=== PATIENT | female | born 1985 | race Caucasian/White ===

== ENCOUNTER 2018-05-30 00:22 | Emergency (ER) | payer MEDICARE, OTHER ==
[2018-05-30] MEDS ORDERED: PROMETHAZINE HCL INJ 25 MG in SODIUM CHLORIDE 0.9% 50ML 50 ML IVPB ONE (00:49)
[2018-05-30] MEDS ORDERED: MORPHINE SULFATE INJ 10 MG/ML VIAL IV ONE ×3 (00:50→02:12)
--- NOTE | 2018-05-30 00:55 | ED.PDOC ---
History of Present Illness - General Chief Complaint: GI Problem Stated Complaint: nausea, vomiting, diarrhea Time Seen by Provider: 05/30/18 00:38 Source: patient, family Exam Limitations: no limitations - History of Present Illness Initial Comments: Patient presents with acute on chronic nausea, vomiting, and diarrhea. She has idiopathic gastroparesis, according to her and her parents, and get these episodes frequently. During them, she has bilious vomiting and sometimes diarrhea. She says that she normally takes phenergan 25 mg IV x one then waits one hour. After that, she then takes a "compazine with a benadryl". She also says she gets treated with morphine. She has a pain specialist that she receives narcotics from. This episode has been going of for "days". She was using phenergan [place] but the diarrhea is preventing her from doing that so she came to the E.R[facility] to get I.V. medications. No other complaints. She does not want laboratories drawn because she has to do that every week and has a lot of "scar tissue" and is a "hard stick". Timing/Duration: changing over time Severity: moderate Improving Factors: nothing Worsening Factors: nothing Associated Symptoms: nausea/vomiting Allergies/Adverse Reactions: Allergies Codeine Allergy (Verified 05/30/18 00:40) Latex Allergy (Verified 05/30/18 00:40) Home Medications: Ambulatory Orders Clonazepam [Clonazepam Odt] 05/30/18 Clonazepam [Clonazepam Odt] 0.25 mg PO TID 05/30/18 Dronabinol [Dronabinol] 10 mg PO DAILY 05/30/18 Olanzapine [Olanzapine Odt] 10 mg PO DAILY 05/30/18 Sucralfate Suspension [Carafate Suspension] 1 gm PO DAILY 05/30/18 Review of Systems - Review of Systems Constitutional: States: no symptoms reported EENTM: States: no symptoms reported Respiratory: States: no symptoms reported Cardiology: States: no symptoms reported Gastrointestinal/Abdominal: States: see HPI Genitourinary: States: no symptoms reported Musculoskeletal: States: no symptoms reported Skin: States: no symptoms reported Neurological: States: no symptoms reported Endocrine: States: no symptoms reported Hematologic/Lymphatic: States: no symptoms reported Physical Exam - Physical Exam General Appearance: Alert Respiratory: lungs clear, normal breath sounds Cardiovascular/Chest: normal peripheral pulses, regular rate, rhythm Gastrointestinal/Abdominal: normal bowel sounds, soft, tenderness, other - bilious vomitus apparent in the vomit bag Back Exam: no CVA tenderness Progress - Progress Progress: 05/30/18 01:39 Phenergan 25 mg IV x one given along with Morphine 4 mg IV x one. The pain lessened slightly and the nausea moderately. After checking interactions with dosage limits as well as finding out from the patient and her parents that she had only had one dose of [place] phenergan early this morning, she was given a single dose of Compazine 10 mg combined with Benadryl 25 mg IV x one. Her pain remained significant and she was given one more dose of Morphine 4 mg IV x one. She was also given NS one liter IV x one. She was discharged to her usual follow up with her GI doctor. Questions were elicited and answered. The patient as well as her parents voiced understanding and agreement with the plan. Departure - Departure Clinical Impression: Gastroparesis, Nausea & vomiting, Diarrhea Disposition: Discharge to Home or Self Care Condition: Good Departure Forms: ED Discharge - Pt. Copy, Patient Portal Self Enrollment Diet: other - as per your GI doctor Activity: increase activity as tolerated Home Medications: Ambulatory Orders Clonazepam [Clonazepam Odt] 05/30/18 Clonazepam [Clonazepam Odt] 0.25 mg PO TID 05/30/18 Dronabinol [Dronabinol] 10 mg PO DAILY 05/30/18 Olanzapine [Olanzapine Odt] 10 mg PO DAILY 05/30/18 Sucralfate Suspension [Carafate Suspension] 1 gm PO DAILY 05/30/18
[2018-05-30] MEDS ORDERED: SODIUM CHLORIDE 0.9% 50ML 50 ML ONE (00:56)
[2018-05-30] MEDS ORDERED: PROMETHAZINE HCL INJ 25 MG/ML VIAL ONE (00:56)
[2018-05-30 01:03] VITALS: O2SAT 100
[2018-05-30] MEDS ORDERED: SODIUM CHLORIDE 0.9% 1000ML 1,000 ML IVS ONE ×2 (01:32→01:36)
[2018-05-30] MEDS ORDERED: SODIUM CHLORIDE 0.9% 1000ML 1,000 ML ONE (01:32)
[2018-05-30] MEDS ORDERED: PROCHLORPERAZINE INJ 10 MG/2 ML VIAL IV ONE (01:37)
[2018-05-30] MEDS ORDERED: diphenhydrAMINE HCL 50 MG/ML VIAL IV ONE (01:38)
[2018-05-30 02:52] VITALS: BP 121/78; TEMP 97.9
== END 2018-05-30 02:52 | disposition home or self-care (01) ==
LOC: EDSEX → ER 00:22
DX: K31.84 Gastroparesis (principal); Z88.5 Allergy status to narcotic agent; Z91.040 Latex allergy status
CPT/HCPCS: A4216; J0780; J1200; J2270; J2550; J7030

== ENCOUNTER 2018-05-31 15:43 | Emergency (ER) | payer MEDICARE, OTHER ==
[2018-05-31] MEDS ORDERED: LACTATED RINGERS 1,000 ML IVS ONE (16:19)
[2018-05-31] MEDS ORDERED: PROMETHAZINE HCL INJ 25 MG in SODIUM CHLORIDE 0.9% 50ML 50 ML IVPB ONE (16:24)
[2018-05-31] MEDS ORDERED: MORPHINE SULFATE INJ 10 MG/ML VIAL IV ONE ×2 (16:24→18:14)
--- NOTE | 2018-05-31 16:26 | ED.PDOC ---
History of Present Illness - General Chief Complaint: GI Problem Stated Complaint: nausea, vomiting and diarrhea Time Seen by Provider: 05/31/18 16:05 Exam Limitations: no limitations - History of Present Illness Initial Comments: Boris Britton 32 y/o female stated that she has gastroparesis for the last 4 years and small fiber neuropathy came to ER wit Nausea/vomiting on and off for the last 3 days was seen 2 x in ER [place] and [facility].Today has also has watery diarrhea.Had been seen at [facility] for possible GI pacemaker but mom stated not candidate and presently followed up at [facility] by a GI specialist.Also is on ferry terminal agent TPN. Abdominal Pain Onset Location: generalized abdomen Pain Radiation: no radiation Quality: cramping, intermittent Timing/Duration: days - 3 Improving Factors: nothing Worsening Factors: nothing Associated Symptoms: nausea/vomiting Review of Systems - Review of Systems Constitutional: States: no symptoms reported EENTM: States: no symptoms reported Respiratory: States: no symptoms reported Cardiology: States: no symptoms reported Gastrointestinal/Abdominal: States: see HPI Genitourinary: States: no symptoms reported Musculoskeletal: States: no symptoms reported Skin: States: no symptoms reported Neurological: States: no symptoms reported Past Medical History (General) - Patient Medical History Hx Cardiac Disorders: Yes - A-fib Hx Diabetes: No Hx Gastroesophageal Reflux: Yes - gastroparesis Hx Cancer: Yes - melanoma Surgical History: cholecystectomy, other - 35 craniofacial surgeries - Vaccination History Hx Tetanus, Diphtheria Vaccination: No Hx Influenza Vaccination: Yes Hx Pneumococcal Vaccination: No - Social History Hx Tobacco Use: No Hx Alcohol Use: No - Female History Patient is a Female of Child Bearing Age (10 -59 yrs old): Yes Patient : No Family Medical History - Family History Father Living Status: Still Living Hx Family Hypertension: Yes Hx Cardiac Disease: Yes - high cholesterol Hx Family;Other: horseshoe kidney Mother Living Status: Still Living Hx Family Hypertension: Yes Hx Cardiac Disease: Yes - A-fib Hx Family;Other: Thyroiditis -sister Physical Exam - Physical Exam General Appearance: Alert, Comfortable, No apparent distress Eyes, Ears, Nose, Throat Exam: PERRL/EOMI, normal ENT inspection, pharynx normal , other - non icteric sclerae Neck: non-tender, full range of motion, supple Respiratory: chest non-tender, lungs clear, normal breath sounds, no respiratory distress Cardiovascular/Chest: normal peripheral pulses, regular rate, rhythm, no murmur Peripheral Pulses: No deficit Gastrointestinal/Abdominal: non tender, soft, no organomegaly Back Exam: no CVA tenderness, no vertebral tenderness Extremity: no pedal edema, no calf tenderness Neurologic: alert, oriented x 3 Skin Exam: normal color, warm/dry, other - TPN port right side chest Lymphatic: no adenopathy Progress - Progress Progress: 05/31/18 16:33 Vital Signs - 8 hr 05/31/18 15:50 Temperature 98.7 F Pulse Rate [ 87 pulse ox] Respiratory 20 Rate Blood Pressure 126/85 [Left Arm] O2 Sat by Pulse 97 Oximetry - Results/Orders Results/Orders: 05/31/18 16:24 URINALYSIS Stat 05/31/18 16:25 URINALYSIS Stat Laboratory Results - last 24 hr 05/31/18 05/31/18 05/31/18 16:38 16:38 18:16 WBC 10.8 RBC 4.75 Hgb 13.6 Hct 41.1 MCV 86.4 MCH 28.6 MCHC 33.1 RDW 14.4 Plt Count 216 MPV 10.0 Absolute Neuts (auto) 7.90 H Absolute Lymphs (auto) 2.00 Absolute Monos (auto) 0.80 Absolute Eos (auto) 0.00 Absolute Basos (auto) 0.10 Neutrophils % 73.0 Lymphocytes % 18.7 L Monocytes % 7.6 Eosinophils % 0.1 L Basophils % 0.6 Normal RBC Morphology Plts rosa increased Sodium 140 Potassium 3.4 L Chloride 104 Carbon Dioxide 21 Anion Gap 18.4 H BUN 22 H Creatinine 0.82 BUN/Creatinine Ratio 26.8 H Random Glucose 105 Serum Osmolality 283.1 Calcium 9.7 Total Bilirubin 0.7 AST 31 ALT 37 Alkaline Phosphatase 152 H Serum Total Protein 8.5 H Albumin 4.4 Globulin 4.1 H Albumin/Globulin Ratio 1.1 Lipase 16 L Serum HCG, Qual Negative - EKG/XRAY/CT XRAY: abdomen - chest -no acute findings Departure - Departure Clinical Impression: Gastroparesis, Nausea vomiting and diarrhea Time of Disposition: 19:59 Disposition: Discharge to Home or Self Care Condition: Fair Departure Forms: ED Discharge - Pt. Copy, Patient Portal Self Enrollment Home Medications: Ambulatory Orders Clonazepam [Clonazepam Odt] 05/30/18 Clonazepam [Clonazepam Odt] 0.25 mg PO TID 05/30/18 Dronabinol [Dronabinol] 10 mg PO DAILY 05/30/18 Olanzapine [Olanzapine Odt] 10 mg PO DAILY 05/30/18 Sucralfate Suspension [Carafate Suspension] 1 gm PO DAILY 05/30/18 Additional Instructions: Continue with all home medications;Recheck with your GI specialist 03 Jun 2018 as needed;Return to ER as needed
[2018-05-31] MEDS ORDERED: SODIUM CHLORIDE 0.9% 50ML 50 ML ONE (16:28)
[2018-05-31] MEDS ORDERED: PROMETHAZINE HCL INJ 25 MG/ML VIAL ONE (16:28)
--- NOTE | 2018-05-31 17:40 | RAD ---
EXAM DESCRIPTION: Abdomen 1 View (accession [id number]), Chest,1 View (accession [id number]) CLINICAL HISTORY: 32 years Female ,nausea/vomiting COMPARISON: None. TECHNIQUE: Frontal view chest x-ray and single view of the abdomen. FINDINGS: The cardiomediastinal silhouette appears unremarkable. No consolidating infiltrates or pleural effusions. Left chest port tip overlies the SVC. Right internal jugular central venous catheter tip overlies the lower SVC. No free air is identified beneath the hemidiaphragms. No dilated loops of bowel to suggest obstruction. No significant calcific densities are identified. Cholecystectomy clips in the right upper quadrant. IMPRESSION: No acute plain film abnormality is identified. Electronically signed by: Diallo Steen MD 05/31/2018 5:39 PM [facility]
--- NOTE | 2018-05-31 17:40 | RAD ---
EXAM DESCRIPTION: Abdomen 1 View (accession [id number]), Chest,1 View (accession [id number]) CLINICAL HISTORY: 32 years Female ,nausea/vomiting COMPARISON: None. TECHNIQUE: Frontal view chest x-ray and single view of the abdomen. FINDINGS: The cardiomediastinal silhouette appears unremarkable. No consolidating infiltrates or pleural effusions. Left chest port tip overlies the SVC. Right internal jugular central venous catheter tip overlies the lower SVC. No free air is identified beneath the hemidiaphragms. No dilated loops of bowel to suggest obstruction. No significant calcific densities are identified. Cholecystectomy clips in the right upper quadrant. IMPRESSION: No acute plain film abnormality is identified. Electronically signed by: Diallo Steen MD 05/31/2018 5:39 PM [facility]
[2018-05-31] MEDS ORDERED: PROCHLORPERAZINE INJ 10 MG/2 ML VIAL IV ONE (17:58)
[2018-05-31] MEDS ORDERED: diphenhydrAMINE HCL 50 MG/ML VIAL IV ONE (17:59)
[2018-05-31] MEDS ORDERED: SODIUM CHLORIDE 0.9% 1000ML 1,000 ML IVS ONE (18:00)
[2018-05-31 19:54] VITALS: O2SAT 100
[2018-05-31 20:59] VITALS: BP 110/72; TEMP 97
== END 2018-05-31 20:10 | disposition home or self-care (01) ==
LOC: EDSEX 15:43 → ER 15:43
DX: K31.84 Gastroparesis (principal); I48.91 Unspecified atrial fibrillation; Z90.49 Acquired absence of other specified parts of digestive tract; Z85.820 Personal history of malignant melanoma of skin
CPT/HCPCS: 36415; 71045; 74018; 80053; 83690; 84703; 85025; A4216; J0780; J1200; J2060; J2270; J2550; J7030; J7120

== ENCOUNTER 2018-06-01 19:00 | Emergency (ER) | payer MEDICARE, OTHER ==
[2018-06-01] MEDS ORDERED: SODIUM CHLORIDE 0.9% 1000ML 1,000 ML IVS ONE (19:36)
[2018-06-01] MEDS ORDERED: PROMETHAZINE HCL INJ 25 MG in SODIUM CHLORIDE 0.9% 50ML 50 ML IVPB ONE (19:37)
[2018-06-01] MEDS ORDERED: MORPHINE SULFATE INJ 10 MG/ML VIAL IV ONE ×2 (19:37→21:38)
[2018-06-01] MEDS ORDERED: SODIUM CHLORIDE 0.9% 50ML 50 ML ONE (19:40)
[2018-06-01] MEDS ORDERED: PROMETHAZINE HCL INJ 25 MG/ML VIAL ONE (19:40)
[2018-06-01 20:20] VITALS: TEMP 99.2
[2018-06-01] MEDS ORDERED: PROCHLORPERAZINE INJ 10 MG/2 ML VIAL IV ONE (20:36)
[2018-06-01] MEDS ORDERED: diphenhydrAMINE HCL 50 MG/ML VIAL IV ONE (20:43)
--- NOTE | 2018-06-01 21:08 | ED.PDOC ---
History of Present Illness - General Chief Complaint: Abdominal Pain Stated Complaint: nausea, vomiting and diarrhea Time Seen by Provider: 06/01/18 19:03 Source: patient - History of Present Illness Initial Comments: the patient is a 32-year-old female presenting with a flare of her intestinal dysmotility. This is not a long-term problem for her. She is in here from [place] of town. She has a tunneled catheter for TPN which she uses nightly. She has presented twice over the last 2 nights not including tonight for this flare. She is having a mild amount of diarrhea. No blood. She feels a little bit dehydrated. She is having some abdominal pain. She has had very extensive workups for this problem in the past. She normally has a routine of medications that she takes at home however she has been unable to hold those down Timing/Duration: unsure Severity: moderate Improving Factors: nothing Worsening Factors: nothing Associated Symptoms: denies symptoms Allergies/Adverse Reactions: Allergies Codeine Allergy (Verified 05/31/18 15:58) Latex Allergy (Verified 05/31/18 15:58) Home Medications: Ambulatory Orders Clonazepam [Clonazepam Odt] 05/30/18 Clonazepam [Clonazepam Odt] 0.25 mg PO TID 05/30/18 Dronabinol [Dronabinol] 10 mg PO DAILY 05/30/18 Olanzapine [Olanzapine Odt] 10 mg PO DAILY 05/30/18 Sucralfate Suspension [Carafate Suspension] 1 gm PO DAILY 05/30/18 Review of Systems - Review of Systems Constitutional: States: no symptoms reported EENTM: States: no symptoms reported Respiratory: States: no symptoms reported Cardiology: States: no symptoms reported Gastrointestinal/Abdominal: States: see HPI Genitourinary: States: no symptoms reported Musculoskeletal: States: no symptoms reported Skin: States: no symptoms reported Neurological: States: no symptoms reported Endocrine: States: no symptoms reported All other Systems: No Change from Baseline Past Medical History (General) - Patient Medical History Hx Seizures: No Hx Stroke: No Hx Dementia: No Hx Asthma: No Hx of COPD: No Hx Cardiac Disorders: Yes - A-fib Hx Congestive Heart Failure: No Hx Pacemaker: No Hx Hypertension: No Hx Thyroid Disease: No Hx Diabetes: No Hx Gastroesophageal Reflux: Yes - gastroparesis Hx Renal Disease: No Hx Cancer: Yes - melanoma Hx of HIV: No Hx Hepatitis C: No Hx MRSA: No Surgical History: cholecystectomy - Vaccination History Hx Tetanus, Diphtheria Vaccination: No Hx Influenza Vaccination: Yes Hx Pneumococcal Vaccination: No Immunizations Up to Date: No - Social History Hx Tobacco Use: No Hx Alcohol Use: No Hx Substance Use: No Hx Substance Use Treatment: No Hx Depression: No Feels Threatened In Home Enviroment: No Feels Threatened In a Relationship: No Hx Physical Abuse: No Hx Emotional Abuse: No Hx Suspected Abuse: No - Female History Patient is a Female of Child Bearing Age (10 -59 yrs old): Yes Hx Last Menstrual Period: 05/09/18 Patient : No - Triage Comment ED Triage Comment: was seen yesterday, states "it is the exact same thing" symptome returned at 1200 today Family Medical History - Family History Father Living Status: Still Living Hx Family Hypertension: Yes Hx Cardiac Disease: Yes - high cholesterol Hx Family;Other: horseshoe kidney Mother Living Status: Still Living Hx Family Hypertension: Yes Hx Cardiac Disease: Yes - A-fib Hx Family;Other: Thyroiditis -sister Physical Exam - Physical Exam General Appearance: Alert, Comfortable, No apparent distress Eye Exam: bilateral normal Ears, Nose, Throat: hearing grossly normal Respiratory: no respiratory distress, no accessory muscle use Cardiovascular/Chest: no edema, other - her double lumen catheter is to the right anterior chest Gastrointestinal/Abdominal: soft, other - ild diffuse discomfort. Mild obesity. Rectal Exam: deferred Back Exam: normal inspection Extremity: normal range of motion, no pedal edema, normal capillary refill Neurologic: poultry sexer II-XII nml as tested, alert, normal mood/affect, oriented x 3 Skin Exam: normal color Comments: Vital Signs - 24 hr 06/01/18 06/01/18 19:10 20:01 Temperature 99.3 F 99.2 F Pulse Rate [ 100 H 102 H pulse ox] Respiratory 20 20 Rate Blood Pressure 131/91 129/89 [ra] O2 Sat by Pulse 100 100 Oximetry Progress - Progress Progress: 06/01/18 21:09 the patient is a 32-year-old female presenting with a flare of her intestinal dysmotility. She has received a liter of IV fluids and a combination of medications that she reports normally works for this problem. The patient is feeling somewhat better. She needs to keep follow-up with her primary care doctor early this coming week. ER warnings were given. Departure - Departure Clinical Impression: Generalized intestinal dysmotility Disposition: Discharge to Home or Self Care Condition: Fair Departure Forms: ED Discharge - Pt. Copy, Patient Portal Self Enrollment Instructions: DI for Abdominal Pain-Adult Diet: bland diet, other - continue TPN Activity: increase activity as tolerated Home Medications: Ambulatory Orders Clonazepam [Clonazepam Odt] 05/30/18 Clonazepam [Clonazepam Odt] 0.25 mg PO TID 05/30/18 Dronabinol [Dronabinol] 10 mg PO DAILY 05/30/18 Olanzapine [Olanzapine Odt] 10 mg PO DAILY 05/30/18 Sucralfate Suspension [Carafate Suspension] 1 gm PO DAILY 05/30/18 Additional Instructions: the patient is a 32-year-old female presenting with a flare of her intestinal dysmotility. She has received a liter of IV fluids and a combination of medications that she reports normally works for this problem. The patient is feeling somewhat better. She needs to keep follow-up with her primary care doctor early this coming week. ER warnings were given.
[2018-06-01 22:08] VITALS: BP 113/78; O2SAT 100
== END 2018-06-01 22:10 | disposition home or self-care (01) ==
LOC: ER 19:00
DX: K30 Functional dyspepsia (principal); R11.2 Nausea with vomiting, unspecified; R19.7 Diarrhea, unspecified; I48.91 Unspecified atrial fibrillation; Z88.5 Allergy status to narcotic agent; Z91.040 Latex allergy status; Z90.49 Acquired absence of other specified parts of digestive tract; Z85.820 Personal history of malignant melanoma of skin
CPT/HCPCS: A4216; J0780; J1200; J2060; J2270; J2550; J7030

== ENCOUNTER 2018-07-01 09:43 | Emergency (ER) | payer OTHER, MEDICARE ==
[2018-07-01 09:57] VITALS: TEMP 98.1
--- NOTE | 2018-07-01 10:00 | ED.PDOC ---
History of Present Illness - General Chief Complaint: GI Problem Stated Complaint: vomiting and diarrhea Time Seen by Provider: 07/01/18 09:56 Information Source: patient, family Exam Limitations: no limitations - History of Present Illness Initial Comments: THIS IS A PATIENT OF DR. CARDENAS WITH CHRONIC DYSMOTILITY SYNDROME AND GASTROPARESIS. SHE WAS JUST RELEASED FROM [facility] FOR A FLARE UP. SHE IS VISITING HERE FOR SAUGERTIES AND NOW PRESENTS WITH DIARRHEA, VOMINTING AND ABDOMIHNAL PAIN. SHE HAS A PICC LINE ON THE RIGHT SUBCLAVIAN. SHE IS ON PHENERGAN EVERY 4 HRS AND TPN. FAMILY VOICES THAT USUALLY BENADRYL AND PHENERGAN IV AND MD CONTGROLS THE FLARE UP. Abdominal Pain Onset Location: generalized abdomen Pain Radiation: no radiation Quality: moderate Timing/Duration: days - TWO DAYS Improving Factors: nothing Worsening Factors: nothing Review of Systems - Review of Systems Constitutional: States: malaise, weakness EENTM: States: no symptoms reported Respiratory: States: no symptoms reported Cardiology: States: no symptoms reported Gastrointestinal/Abdominal: States: abdominal pain, diarrhea, nausea, vomiting Genitourinary: States: no symptoms reported Musculoskeletal: States: no symptoms reported Skin: States: no symptoms reported Neurological: States: no symptoms reported Endocrine: States: no symptoms reported Hematologic/Lymphatic: States: no symptoms reported Past Medical History (General) - Patient Medical History Hx Seizures: No Hx Stroke: No Hx Dementia: No Hx Asthma: No Hx of COPD: No Hx Cardiac Disorders: Yes Hx Congestive Heart Failure: No Hx Pacemaker: No Hx Hypertension: No Hx Thyroid Disease: No Hx Diabetes: No Hx Gastroesophageal Reflux: Yes - gastroparesis Hx Renal Disease: No Hx Cancer: Yes - melanoma Hx of HIV: No Hx Hepatitis C: No Hx MRSA: No Surgical History: other - Vaccination History Hx Tetanus, Diphtheria Vaccination: No Hx Influenza Vaccination: Yes Hx Pneumococcal Vaccination: - refused - Social History Hx Tobacco Use: No Hx Alcohol Use: No Hx Substance Use: No Hx Substance Use Treatment: No Hx Depression: No Hx Physical Abuse: No Hx Emotional Abuse: No Hx Suspected Abuse: No - Female History Hx Last Menstrual Period: 05/09/18 Patient : No Family Medical History - Family History Father Living Status: Still Living Hx Family Hypertension: Yes Hx Cardiac Disease: Yes - high cholesterol Hx Family;Other: horseshoe kidney Mother Living Status: Still Living Hx Family Hypertension: Yes Hx Cardiac Disease: Yes - A-fib Hx Family;Other: Thyroiditis -sister Physical Exam - Physical Exam General Appearance: Alert, Ill Appearing, Well Developed, Well Groomed, Well Hydrated, Well Nourished Eyes, Ears, Nose, Throat Exam: PERRL/EOMI, normal ENT inspection Neck: non-tender, full range of motion, supple, normal inspection Respiratory: chest non-tender, normal breath sounds, no respiratory distress, no accessory muscle use Cardiovascular/Chest: normal peripheral pulses, regular rate, rhythm, no edema, no gallop, no JVD, no murmur Gastrointestinal/Abdominal: normal bowel sounds, tenderness Back Exam: normal inspection, no CVA tenderness, no vertebral tenderness Extremity: normal range of motion, non-tender, normal inspection Neurologic: no motor/sensory deficits, alert, normal mood/affect, oriented x 3 Skin Exam: normal color Progress - Progress Progress: 07/01/18 12:08 FEELS MUCH IMPROVED, DESIRES TO GO HOME. . Departure - Departure Clinical Impression: Nondiabetic gastroparesis, Generalized intestinal dysmotility Abdominal pain Qualifiers: Abdominal location: generalized Qualified Code(s): R10.84 - Generalized abdominal pain Time of Disposition: 12:10 Disposition: Discharge to Home or Self Care Condition: Fair Departure Forms: ED Discharge - Pt. Copy, Patient Portal Self Enrollment Instructions: Gastroparesis (Delayed Gastric Emptying) (DC) Home Medications: Ambulatory Orders Diphenhydramine HCl [Diphenhydramine Hydrochlo] 2 ml PO Q4H PRN 07/01/18 Dronabinol 10 mg PO Q6HR 07/01/18 Hyoscyamine Sulfate 0.125 mg SL Q4H PRN 07/01/18 Lansoprazole 30 mg PO BID 07/01/18 Parenteral Electrolytes [TPN Electrolytes] 1 inj IV DAILY 07/01/18 Prochlorperazine [Compro] 25 mg NE DAILY PRN 07/01/18 Promethazine HCl 25 mg NE Q4H PRN 07/01/18 Rizatriptan Benzoate [Maxalt-Executive Compensation Analyst] 5 mg PO DAILY PRN 07/01/18 Scopolamine Patch 1.5MG [Transderm-Scop Patch] 1 mg TD .Q3D 07/01/18
[2018-07-01] MEDS ORDERED: PROMETHAZINE HCL INJ 25 MG in SODIUM CHLORIDE 0.9% 50ML 50 ML IVPB ONE (10:08)
[2018-07-01] MEDS ORDERED: diphenhydrAMINE HCL 50 MG/ML VIAL IV ONE (10:09)
[2018-07-01] MEDS ORDERED: MORPHINE SULFATE INJ 10 MG/ML VIAL IV ONE (10:10)
[2018-07-01] MEDS ORDERED: SODIUM CHLORIDE 0.9% 1000ML 1,000 ML IVS ONE (10:12)
[2018-07-01] MEDS ORDERED: PROMETHAZINE HCL INJ 25 MG/ML VIAL ONE (10:16)
[2018-07-01] MEDS ORDERED: SODIUM CHLORIDE 0.9% 50ML 50 ML ONE (10:17)
[2018-07-01] MEDS ORDERED: PROCHLORPERAZINE INJ 10 MG/2 ML VIAL IV ONE (11:26)
[2018-07-01] MEDS ORDERED: HYDROmorphone HCL INJ 2 MG/ML VIAL IV ONE (11:27)
[2018-07-01 13:02] VITALS: BP 123/91; O2SAT 97
== END 2018-07-01 12:35 | disposition home or self-care (01) ==
LOC: ER 09:43
DX: K31.84 Gastroparesis (principal); K30 Functional dyspepsia; I51.9 Heart disease, unspecified; Z85.820 Personal history of malignant melanoma of skin
CPT/HCPCS: A4216; J0780; J1170; J1200; J2270; J2550; J7030